=== PATIENT | female | born 1945 | race Caucasian/White ===

== ENCOUNTER 2017-10-15 06:30 | Inpatient (IN) | payer MEDICARE, BC ==
[~2017-10-15] VITALS: Ht 162.6 cm; Wt 64.9 kg
[~2017-10-15 06:30] MED LIST: ALEN70TA5 PO; ASPI-496 PO; BACL20TA PO; BUPIVACAINE/PF 0.25% ONE; CARV12.52 PO; CHOL200024 PO; CLINDAMYCIN 150 MG/ML, 6ML ONE; DULO30CA2 PO; GABA300C10 PO; MULT-717 PO; NATA300V2 IV; OMEP-110 PO; POTA2TAB8 PO; SENN17.25 PO; SIMV20TA3 PO; TRANEXAMIC ACID 100 MG/ML, 10ML ONE; ZOLP10TA5 PO; methylPREDNISolone *ACETATE* 40 MG/ML ONE
[2017-10-15] MEDS ORDERED: VANCOMYCIN PER PHARMACY MC STA (06:45)
[2017-10-15] MEDS ORDERED: VANCOMYCIN 1,200 MG in SODIUM CHLORIDE 0.9% 250 ML IV ONE (07:00)
[2017-10-15] MEDS ORDERED: LACTATED RINGERS 1,000 ML IV SCH (07:20)
[2017-10-15] MEDS ORDERED: HYDROmorphone 1 MG/ML, 1ML IV PRN (07:30)
[2017-10-15] MEDS ORDERED: LABETALOL 5MG/ML, 20ML IV PRN (07:30)
[2017-10-15] MEDS ORDERED: EPHEDRINE 50 MG/ML, 1ML IVPush PRN (07:30)
[2017-10-15] MEDS ORDERED: FENTANYL PF 100 MCG/2ML IV PRN (07:30)
[2017-10-15] MEDS ORDERED: METOPROLOL 1 MG/ML, 5ML IV PRN (07:30)
[2017-10-15] MEDS ORDERED: ACETAMINOPHEN 325 MG TABLET PO PRN ×2 (07:30→09:00)
[2017-10-15] MEDS ORDERED: hydrALAzine 20 MG/ML, 1ML IV PRN (07:30)
[2017-10-15] MEDS ORDERED: ONDANSETRON 2MG/ML, 2ML IVPush PRN (07:30)
[2017-10-15] MEDS ORDERED: OXYcodone 5 MG/5 ML ORAL.SOL UDC PO PRN (07:30)
[2017-10-15] MEDS ORDERED: PROMETHAZINE 25 MG/ML, 1ML IV PRN (07:30)
[2017-10-15] MEDS ORDERED: ALBUTEROL SULFATE 2.5 MG/3 ML NPPB PRN (07:30)
[2017-10-15] MEDS ORDERED: MIDAZOLAM 1 MG/ML, 2ML ONE (08:25)
[2017-10-15] MEDS ORDERED: FENTANYL PF 100 MCG/2ML ONE (08:26)
[2017-10-15] MEDS: D5%-0.45% NACL 1,000 ML IV SCH ×3 (08:40→22:32)
[2017-10-15] MEDS ORDERED: NEOSTIGMINE 1 MG/ML, 10ML ONE (08:58)
[2017-10-15] MEDS ORDERED: GLYCOPYRROLATE 0.2MG/1ML, 5ML ONE (08:58)
[2017-10-15] MEDS: GABAPENTIN 300 MG CAPSULE PO SCH ×3 (09:00→21:14)
[2017-10-15] MEDS ORDERED: SENNA/DOCUSATE TABLET PO PRN (09:00)
[2017-10-15] MEDS: OXYcodone/APAP 5/325MG TABLET PO SCH ×5 (09:00→21:13)
[2017-10-15] MEDS: CARVEDILOL 12.5 MG TABLET PO SCH ×2 (09:00→21:14)
[2017-10-15] MEDS ORDERED: BISACODYL 10 MG SUPP PR PRN (09:00)
[2017-10-15] MEDS ORDERED: MAGNESIUM HYDROXIDE 8%, 30ML UDC PO PRN (09:00)
[2017-10-15] MEDS ORDERED: PROMETHAZINE 25 MG/ML, 1ML IM PRN (09:00)
[2017-10-15] MEDS ORDERED: ONDANSETRON 2MG/ML, 2ML IV PRN (09:00)
[2017-10-15] MEDS: MULTIVITAMINS/MINERALS TABLET PO SCH (09:00)
[2017-10-15] MEDS ORDERED: morphine SULFATE 10 MG/ML, 1ML IV PRN (09:00)
[2017-10-15] MEDS ORDERED: DEXAMETHASONE 4 MG/ML, 1ML ONE (09:28)
[2017-10-15] MEDS ORDERED: ROCURONIUM 10 MG/ML,10ML ONE (09:28)
[2017-10-15] MEDS ORDERED: ONDANSETRON 2MG/ML, 2ML ONE (09:28)
[2017-10-15] MEDS ORDERED: PROPOFOL 10 MG/ML, 20ML ONE (09:28)
[2017-10-15] MEDS: KETOROLAC 30 MG/1 ML IV SCH ×2 (14:05→22:32)
[2017-10-15] MEDS: CEFAZOLIN PMX 1GM/50ML 50 ML IVPB SCH ×2 (14:05→22:32)
[2017-10-15] MEDS: DOCUSATE 100 MG CAPSULE PO SCH ×2 (14:05→21:14)
[2017-10-15 16:00] VITALS: BP 104/52
[2017-10-15] MEDS: ASPIRIN 81 MG TABLET EC PO SCH (16:55)
[2017-10-15 19:58] VITALS: BP 106/62
[2017-10-15] MEDS ORDERED: OMEPRAZOLE 20 MG CAPSULE.DR PO SCH (21:00)
[2017-10-15] MEDS ORDERED: SIMVASTATIN 20 MG TABLET PO SCH (21:00)
[2017-10-15] MEDS ORDERED: DULOXETINE 30 MG CAPSULE.DR PO SCH (21:00)
[2017-10-15] MEDS ORDERED: ZOLPIDEM 10MG TABLET PO SCH (21:00)
[2017-10-16 00:32] VITALS: BP 113/63
[2017-10-16] MEDS: OXYcodone/APAP 5/325MG TABLET PO SCH ×3 (00:56→09:08)
[2017-10-16] MEDS: KETOROLAC 30 MG/1 ML IV SCH (05:43)
[2017-10-16] MEDS: CEFAZOLIN PMX 1GM/50ML 50 ML IVPB SCH (05:43)
[2017-10-16 07:57] VITALS: BP 102/58
[2017-10-16] MEDS: MULTIVITAMINS/MINERALS TABLET PO SCH (07:59)
[2017-10-16] MEDS: DOCUSATE 100 MG CAPSULE PO SCH (07:59)
[2017-10-16] MEDS: ASPIRIN 81 MG TABLET EC PO SCH (07:59)
[2017-10-16] MEDS: CARVEDILOL 12.5 MG TABLET PO SCH (07:59)
[2017-10-16] MEDS: GABAPENTIN 300 MG CAPSULE PO SCH (07:59)
[2017-10-16 09:30] VITALS: BP 105/60
== END 2017-10-16 10:15 | disposition home or self-care (01) | DRG 483 ==
LOC: ORIP 06:30 → 4NOR 12:24 → DCLOUNGE 10-16 10:00
PROVIDERS: ADMIT Orthopaedic Surgery; ATTEND Orthopaedic Surgery
PROC: 0RPK04Z Removal of Internal Fixation Device from Left Shoulder Joint, Open Approach (ICD-10-PCS; 2017-10-15)
PROC: 3E0T3BZ Introduction of Anesthetic Agent into Peripheral Nerves and Plexi, Percutaneous Approach (ICD-10-PCS; 2017-10-15)
PROC: 0LS40ZZ Reposition Left Upper Arm Tendon, Open Approach (ICD-10-PCS; 2017-10-15)
PROC: 0RRK00Z Replacement of Left Shoulder Joint with Reverse Ball and Socket Synthetic Substitute, Open Approach (ICD-10-PCS; principal; 2017-10-15 09:15)
DX: M12.512 Traumatic arthropathy, left shoulder (principal); G35 Multiple sclerosis; M12.812 Other specific arthropathies, not elsewhere classified, left shoulder; M65.812 Other synovitis and tenosynovitis, left shoulder; I10 Essential (primary) hypertension; M75.20 Bicipital tendinitis, unspecified shoulder; K21.9 Gastro-esophageal reflux disease without esophagitis; M81.0 Age-related osteoporosis without current pathological fracture; S46.012S Strain of muscle(s) and tendon(s) of the rotator cuff of left shoulder, sequela
CPT/HCPCS: C1713; C1776; J0690; J1100; J1885; J2250; J2405; J2704; J2710; J3010; J3370; J3490; C1769; J1030; J7050; J7120

== ENCOUNTER 2018-06-21 07:18 | Day surgery (SDC) | payer MEDICARE, BC ==
[~2018-06-21] VITALS: Ht 160 cm; Wt 59.5 kg
[~2018-06-21 07:18] MED LIST changes: +AMLO1CAP10 PO; -BUPIVACAINE/PF 0.25% ONE; -CLINDAMYCIN 150 MG/ML, 6ML ONE; +HYDR25TA6 PO; +METHYLERGONOVINE 0.2 MG/ML IM ONE; +OXYTOCIN 10 UNITS/ML, 1ML ONE; +SILVER NITRATE STICK TP ONE; -TRANEXAMIC ACID 100 MG/ML, 10ML ONE; +VASOPRESSIN 20 UNIT/ML, 1ML ONE; -methylPREDNISolone *ACETATE* 40 MG/ML ONE
[2018-06-21] MEDS ORDERED: LACTATED RINGERS 1,000 ML IV SCH (08:19)
[2018-06-21 08:49] VITALS: BP 112/59
[2018-06-21] MEDS ORDERED: FENTANYL PF 100 MCG/2ML ONE (10:29)
[2018-06-21] MEDS ORDERED: PROPOFOL 50 ML ONE (10:30)
[2018-06-21] MEDS ORDERED: ONDANSETRON 2MG/ML, 2ML ONE (10:40)
[2018-06-21] MEDS ORDERED: DEXAMETHASONE 4 MG/ML, 1ML ONE (10:54)
[2018-06-21] MEDS ORDERED: DIPHENHYDRAMINE 50 MG/ML, 1ML IVPush PRN (11:30)
[2018-06-21] MEDS ORDERED: LABETALOL 5MG/ML, 20ML IV PRN (11:30)
[2018-06-21] MEDS ORDERED: OXYcodone 5 MG/5 ML ORAL.SOL UDC PO PRN (11:30)
[2018-06-21] MEDS ORDERED: PROMETHAZINE 25 MG SUPP PR PRN (11:30)
[2018-06-21] MEDS ORDERED: MORPHINE SULFATE 4 MG/ML, 1ML IVPush PRN (11:30)
[2018-06-21] MEDS ORDERED: EPHEDRINE 50 MG/ML, 1ML IM PRN (11:30)
[2018-06-21] MEDS ORDERED: FENTANYL PF 100 MCG/2ML IV PRN (11:30)
[2018-06-21] MEDS ORDERED: ACETAMINOPHEN 325 MG TABLET PO PRN (11:30)
[2018-06-21] MEDS ORDERED: EPHEDRINE 50 MG/ML, 1ML IVPush PRN (11:30)
[2018-06-21] MEDS ORDERED: MIDAZOLAM 1 MG/ML, 2ML IV PRN (11:30)
[2018-06-21] MEDS ORDERED: PROMETHAZINE 12.5 MG SUPP PR PRN (11:30)
[2018-06-21] MEDS ORDERED: ONDANSETRON ODT 8 MG PO PRN (11:30)
[2018-06-21] MEDS ORDERED: PROMETHAZINE 25 MG/ML, 1ML IV PRN (11:30)
[2018-06-21] MEDS ORDERED: MEPERIDINE/PF 25MG/0.5ML IVPush PRN (11:30)
[2018-06-21] MEDS ORDERED: hydrALAzine 20 MG/ML, 1ML IV PRN (11:30)
== END 2018-06-21 13:20 | disposition home or self-care (01) ==
LOC: OUT 07:18
PROVIDERS: ATTEND Specialist
DX: N95.0 Postmenopausal bleeding (principal); N95.2 Postmenopausal atrophic vaginitis; I10 Essential (primary) hypertension; K21.9 Gastro-esophageal reflux disease without esophagitis; D64.9 Anemia, unspecified; E78.00 Pure hypercholesterolemia, unspecified; E11.9 Type 2 diabetes mellitus without complications; G35 Multiple sclerosis; Z79.82 Long term (current) use of aspirin; Z96.642 Presence of left artificial hip joint; Z98.890 Other specified postprocedural states; Z79.899 Other long term (current) drug therapy
CPT/HCPCS: 58120; 88305; J1100; J2405; J2590; J2704; J3010; J7120; J2210

== ENCOUNTER → 2018-11-23 | Outpatient (CLI) | payer MEDICARE, BC ==
[~2018-11-23] MED LIST changes: -ALEN70TA5 PO; +ALEN70TA6 PO; +CEPH-376 PO; +CHOL5000 PO; +CLON0.2T PO; +Iron PO; -METHYLERGONOVINE 0.2 MG/ML IM ONE; -OXYTOCIN 10 UNITS/ML, 1ML ONE; +POTA99TA2 PO; +SENN-88 PO; -SILVER NITRATE STICK TP ONE; -VASOPRESSIN 20 UNIT/ML, 1ML ONE
[2018-11-23 12:26] LABS: BASOPHILS # (AUTO) 0.02 x10^3/uL (0-0.1); BASOPHILS % (AUTO) 0 % (0-1); EOSINOPHILS # (AUTO) 0.07 x10^3/uL (0-0.4); EOSINOPHILS % (AUTO) 1 % (1-7); LYMPHOCYTES # (AUTO) 2.44 x10^3/uL (1-3.4); LYMPHOCYTES % (AUTO) 47 % (22-44); MD NO; MEAN CORPUSCULAR HEMOGLOBIN 36.7 pg (27.0-34.8); MEAN CORPUSCULAR HGB CONC 34.1 g/dL (32.4-35.8); MEAN CORPUSCULAR VOLUME 107.4 fL (80-100); MEAN PLATELET VOLUME 6.3 fL (7.4-10.4); MONOCYTES # (AUTO) 0.41 x10^3/uL (0.2-0.8); MONOCYTES % (AUTO) 8 % (2-9); NEUTROPHILS # (AUTO) 2.21 x10^3/uL (1.8-6.8); NEUTROPHILS % (AUTO) 43 % (42-75); PLATELET COUNT 294 x10^3/uL (130-400); RED BLOOD COUNT 3.54 x10^6/uL (3.82-5.3); RED CELL DISTRIBUTION WIDTH 15.2 % (9.6-15.2)
[2018-11-23 12:31] LABS: ALBUMIN 3.4 g/dL (3.4-5.0); ANION GAP 7 mmol/L (5-15); CALCIUM 8.8 mg/dL (8.5-10.1); CHLORIDE 101 mmol/L (98-107)
[2018-11-23 12:35] LABS: ALANINE AMINOTRANSFERASE 18 U/L (12-78); ALKALINE PHOSPHATASE 80 U/L (45-117); BILIRUBIN,TOTAL 1.1 mg/dL (0.2-1.0); CREATININE 0.46 mg/dL (0.55-1.02); TOTAL PROTEIN 6.4 g/dL (6.4-8.2)
[2018-11-23 12:49] LABS: INTERNATIONAL NORMALIZED RATIO 0.95 (0.93-1.1); PROTHROMBIN TIME 10.1 Seconds (9.6-11.5)
== END | disposition home or self-care (01) ==
LOC: STAR 10:28
PROVIDERS: ATTEND Specialist
DX: N95.0 Postmenopausal bleeding (principal)
CPT/HCPCS: 36415; 80053; 85025; 85610; 85730; 93005

== ENCOUNTER 2018-11-29 09:25 | Day surgery (SDC) | payer MEDICARE, BC ==
[~2018-11-29] VITALS: Ht 162.6 cm; Wt 61.3 kg
[2018-11-29] MEDS ORDERED: LACTATED RINGERS 1,000 ML IV SCH (10:23)
[2018-11-29 10:26] VITALS: BP 115/78
[2018-11-29] MEDS ORDERED: ACETAMINOPHEN 500 MG TABLET PO ONE (10:30)
[2018-11-29] MEDS ORDERED: ONDANSETRON ODT 8 MG PO ONE (10:30)
[2018-11-29] MEDS ORDERED: [UNRECOGNIZED DRUG - OTHER] (10:34)
[2018-11-29] MEDS ORDERED: MIDAZOLAM 1 MG/ML, 2ML ONE (12:39)
[2018-11-29] MEDS ORDERED: FENTANYL PF 100 MCG/2ML ONE ×3 (12:39→15:25)
[2018-11-29] MEDS ORDERED: HEPARIN 5,000 UNITS/ML, 1ML ONE (13:22)
[2018-11-29] MEDS ORDERED: EPINEPHRINE 1 MG/ML, 1ML ONE (13:22)
[2018-11-29] MEDS ORDERED: BUPIVACAINE/PF 0.25% ONE (13:22)
[2018-11-29] MEDS ORDERED: LIDOCAINE 2% 100MG/5ML SYRINGE ONE (13:53)
[2018-11-29] MEDS ORDERED: GLYCOPYRROLATE 0.2MG/1ML, 5ML ONE (13:53)
[2018-11-29] MEDS ORDERED: ROCURONIUM 10MG/ML,5ML ONE (13:53)
[2018-11-29] MEDS ORDERED: NEOSTIGMINE 1 MG/ML, 10ML ONE (13:53)
[2018-11-29] MEDS ORDERED: CEFAZOLIN 1,000 MG ONE (13:53)
[2018-11-29] MEDS ORDERED: PROPOFOL 50 ML ONE (14:08)
[2018-11-29] MEDS ORDERED: OXYcodone 5 MG/5 ML ORAL.SOL UDC ONE (15:25)
[2018-11-29] MEDS: FENTANYL PF 100 MCG/2ML IV PRN ×2 (15:28→15:54)
[2018-11-29] MEDS ORDERED: LABETALOL 5MG/ML, 20ML IV PRN (15:30)
[2018-11-29] MEDS ORDERED: OXYcodone 5 MG/5 ML ORAL.SOL UDC PO PRN (15:30)
[2018-11-29] MEDS ORDERED: METOCLOPRAMIDE 5 MG/ML, 2ML IV PRN (15:30)
[2018-11-29] MEDS ORDERED: KETOROLAC 30 MG/1 ML IV PRN (15:30)
[2018-11-29] MEDS ORDERED: hydrALAzine 20 MG/ML, 1ML IV PRN (15:30)
[2018-11-29] MEDS ORDERED: HYDROmorphone 2 MG/ML, 1ML IVPush PRN (15:30)
[2018-11-29] MEDS ORDERED: LORazepam 2 MG/ML, 1ML IVPush PRN (15:30)
== END 2018-11-29 18:25 | disposition home or self-care (01) ==
LOC: OUT 09:25
PROVIDERS: ATTEND Specialist
DX: N84.0 Polyp of corpus uteri (principal); N95.0 Postmenopausal bleeding; N88.2 Stricture and stenosis of cervix uteri; I10 Essential (primary) hypertension; K21.9 Gastro-esophageal reflux disease without esophagitis; G35 Multiple sclerosis; D64.9 Anemia, unspecified; E11.9 Type 2 diabetes mellitus without complications; E78.00 Pure hypercholesterolemia, unspecified; Z86.73 Personal history of transient ischemic attack (TIA), and cerebral infarction without residual deficits; Z98.890 Other specified postprocedural states; Z79.82 Long term (current) use of aspirin; Z96.642 Presence of left artificial hip joint
CPT/HCPCS: 36415; 58552; 86850; 86900; 86923; 88307; 88329; J0171; J0690; J2250; J2704; J2710; J3010; J3490; Q0162; J1644